=== PATIENT | male | born 1940 | race Hispanic/Latino ===

== ENCOUNTER → 2019-11-06 | Outpatient (CLI) | payer MEDICARE ==
[~2019-11-06] MED LIST: GADOBENATE DIMEGLUMINE 1 ML IV ONE; SODIUM CHLORIDE 0.9% 50ML 50 ML ONE
[2019-11-06 12:03] LABS: BLOOD UREA NITROGEN 16 mg/dL (7-26); BUN/CREATININE RATIO 16 (6-25); CREATININE, SERUM 0.98 mg/dL (0.72-1.25); EST GLOMERULAR FILTRATION RATE > 60 ML/MIN (60-)
--- NOTE | 2019-11-06 14:20 | Diagnostic Imaging Report ---
TECHNIQUE: MRI of the abdomen WITHOUT and WITH intravenous contrast. INDICATION: 78-year-old man with neoplasm of kidney. COMPARISON: None. FINDINGS: LOWER THORAX: Unremarkable. LIVER: No cirrhosis or hepatic steatosis. 2 x 1.4 cm cyst in the left hepatic lobe. Additional subcentimeter cyst in the right hepatic lobe. BILIARY: Gallbladder is unremarkable. No biliary ductal dilatation or filling defect. SPLEEN: No splenomegaly. PANCREAS: No focal masses or ductal dilatation. ADRENALS: No adrenal nodules. KIDNEYS/URETERS: 7.1 x 7.2 x 7.3 cm enhancing mass centered in the right lower pole extends into the renal sinus and appears to invade a portion of the right renal vein in the lower pole. The mass appears to be contained within Gerota's fascia. 2.7 x 1.7 cm nonenhancing bilobed cystic structure abuts the inferior aspect of the mass. Bilateral parapelvic cysts measure up to 0.8 x 1.8 cm on the right and up to 1.1 x 2.1 cm on the left. No hydronephrosis. PERITONEUM/RETROPERITONEUM: No free fluid. 1.2 x 2.5 cm nonenhancing lobulated cystic structure anterior to the infrarenal abdominal aorta, likely a benign entity such as a lymphangioma. LYMPH NODES: No lymphadenopathy. VESSELS: Remainder of the right renal vein and inferior vena cava are patent. GI TRACT: No distention or wall thickening. BONES AND SOFT TISSUES: Degenerative changes of the visualized spine. 1.3 x 3.1 cm cystic structure in the superficial soft tissues at the midline of the back, likely an epidermal inclusion cyst. IMPRESSION: 7.3 cm right renal mass, suspicious for renal cell carcinoma. The mass extends into the renal sinus and appears to invade a portion of the right renal vein in the lower pole. No metastases in the abdomen. Signed by: Kristi Frye MD on 11/06/2019 2:17 PM
== END ==
LOC: MRI 11:24
PROVIDERS: ATTEND Urology
DX: D41.00 Neoplasm of uncertain behavior of unspecified kidney (principal)
CPT/HCPCS: 36415; 74183; 82565; 84520; A9577

== ENCOUNTER → 2019-11-28 | Outpatient (CLI) | payer MEDICARE ==
[~2019-11-28] MED LIST changes: +IOPAMIDOL 370 MG/ML 200 ML INFUS..BTL INJ ONE
[2019-11-28 14:36] LABS: BLOOD UREA NITROGEN 15 mg/dL (7-26); BUN/CREATININE RATIO 16 (6-25); CREATININE, SERUM 0.92 mg/dL (0.72-1.25); EST GLOMERULAR FILTRATION RATE > 60 ML/MIN (60-)
--- NOTE | 2019-11-28 16:06 | Diagnostic Imaging Report ---
EXAM: CT Chest WITH intravenous contrast 11/28/2019 3:38 PM INDICATION: Renal malignancy COMPARISON: Abdominal MRI 11/06/2019 TECHNIQUE: Chest was scanned utilizing a multidetector helical scanner from the lung apex through the level of the adrenal glands after administration of IV contrast. Coronal and sagittal reformations were obtained. Routine protocol was performed. IV CONTRAST: 100mL Isovue 370 RADIATION DOSE: Total DLP: 595 mGy*cm. Dose modulation, iterative reconstruction, and/or weight based adjustment of the mA/kV was utilized to reduce the radiation dose to as low as reasonably achievable. COMPLICATIONS: None FINDINGS: LINES/ TUBES: None. LUNGS AND AIRWAYS: The central airways are patent. No focal consolidation or pulmonary edema. Mild dependent bibasilar subsegmental atelectasis. Small scattered thin-walled cysts in both lungs. Right upper lobe and right middle lobe 4 mm pulmonary nodules (series 5 image 33, 74 and 88). PLEURA: The pleural spaces are clear. HEART AND MEDIASTINUM: The thyroid gland is normal. No mediastinal, hilar or axillary lymphadenopathy. The heart is normal in size.. There is no pericardial effusion. No central pulmonary embolism. UPPER ABDOMEN: 1.9 cm left hepatic cyst. No acute findings in the upper abdomen. BONES: No acute osseous injury. Left proximal humerus bone lesion with chondroid matrix, likely benign. SOFT TISSUES: Unremarkable. IMPRESSION: No definite evidence of metastatic disease in the thorax. Nonspecific 4 mm right upper lobe and right middle lobe pulmonary nodules. Recommend follow-up chest CT in 12 months to assess for stability. Signed by: Peterson Hobbs MD on 11/28/2019 4:03 PM
--- NOTE | 2019-11-28 16:11 | Diagnostic Imaging Report ---
MRI BRAIN WOW HISTORY: Renal mass COMPARISON: None. TECHNIQUE: Multiplanar, multisequence MRI examination of the brain was performed without and with intravenous gadolinium based contrast. DISCUSSION: Scalp/bone marrow: Unremarkable. Brain sulci: Prominent. Ventricles: Compensatory dilatation. Extra-axial spaces: No masses or fluid collections. Parenchyma: Scattered T2/FLAIR hyperintense foci throughout the supratentorial white matter are likely chronic microvascular ischemic changes. Associated old small lacunar infarcts are seen in the posterior limb of the left internal capsule and left caudate body. Symmetric globi pallidi magnetic susceptibility is likely due to physiologic calcification. Otherwise, no mass, hemorrhage, or acute vascular insults. Vessels: Normal flow voids in major arteries and veins. Sellar/Suprasellar region: No abnormalities. Craniocervical junction: No abnormalities. Additional findings: Bilateral ocular lens replacement. Questionable indeterminate nodular T2 hyperintense, enhancing 1 cm lesion in the right orbit anterior superior extraconal space. Mild scattered bilateral paranasal sinus mucosal thickening IMPRESSION: 1. No evidence for intracranial or calvarial metastatic disease 2. No acute intracranial abnormalities. 3. 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 4. Mild generalized cerebral volume loss. 5. Questionable indeterminate 1 cm nodular T2 hyperintense, enhancing lesion in the right orbit anterior superior extraconal space. This could be due to artifact (volume averaging/susceptibility) from the adjacent aerated right frontal sinus. This could be further evaluated with a contrast-enhanced orbital CT if clinically feasible. Signed by: Dr. Jose J Owen M.D. on 11/28/2019 4:08 PM
== END ==
LOC: MRI 13:28
PROVIDERS: ATTEND Urology
DX: Z01.818 Encounter for other preprocedural examination (principal); N28.89 Other specified disorders of kidney and ureter
CPT/HCPCS: 36415; 70553; 71260; 82565; 84520; A9577; Q9967

== ENCOUNTER → 2020-03-27 | Outpatient (CLI) | payer MEDICARE ==
[~2020-03-27] MED LIST changes: +DIATRIZOATE MEGL/DIATRIZOA SOD 30 ML BTL PO ONE; -GADOBENATE DIMEGLUMINE 1 ML IV ONE; +SODIUM CHLORIDE 0.9% 500ML 500 ML ONE
[2020-03-27 18:40] LABS: CREATININE, SERUM 1.57 mg/dL (0.72-1.25)
== END ==
LOC: CT 17:46
PROVIDERS: ATTEND Internal Medicine
DX: R94.02 Abnormal brain scan (principal)
CPT/HCPCS: 36415; 71260; 74177; 82565; 84520; 96360; J7040; Q9967